=== PATIENT | male | born 1985 | race Caucasian/White ===

== ENCOUNTER 2017-10-01 11:57 | Emergency (ER) | payer SELFPAY ==
[~2017-10-01] VITALS: Ht 188 cm; Wt 77.3 kg
[~2017-10-01 11:57] MED LIST: AMBIEN10 MG PO; CELEXA20 MG PO; KLONOPIN0.5 M1 PO; LITHOBID300 MG PO; NOHOMEMEDS; PROVENTIL,200 INHALA IH; RISPERIDONE1 MG PO; THERAGRAN1 TABLET PO; VENTOLIN HFA18 GM IH; VITAMIN B-1100 MG PO; ZOLPIDEM TARTRAT5 MG PO
[2017-10-01] MEDS ORDERED: FLEXERIL10 MG PO (13:19)
[2017-10-01] MEDS ORDERED: ULTRAM50 MG PO (13:19)
[2017-10-01 13:46] VITALS: BP 135/85
== END 2017-10-01 13:46 | disposition home or self-care (01) ==
LOC: EME 11:57
DX: S29.011A Strain of muscle and tendon of front wall of thorax, initial encounter (principal); X50.9XXA Other and unspecified overexertion or strenuous movements or postures, initial encounter; Y93.89 Activity, other specified; J45.909 Unspecified asthma, uncomplicated; F17.200 Nicotine dependence, unspecified, uncomplicated
CPT/HCPCS: 71046; 93005; 99281; 99284

== ENCOUNTER 2017-11-29 05:09 | Inpatient (IN) | payer OTHER ==
[~2017-11-29] VITALS: Ht 188 cm; Wt 85.0 kg
[~2017-11-29 05:09] MED LIST changes: +FLEXERIL10 MG PO; +ULTRAM50 MG PO
[2017-11-29 05:42] LABS: AMPHETAMINE NEGATIVE (500 ng/mL); BARBITURATES NEGATIVE (200 ng/mL); BENZODIAZEPINES NEGATIVE (150 ng/mL); COCAINE PRESUMPTIVE POSITIVE (150 ng/mL); METHADONE NEGATIVE (200 ng/mL); METHAMPHETAMINE NEGATIVE (500 ng/mL); OPIATES (MORPHINE) NEGATIVE (100 ng/mL); OXYCODONE PRESUMPTIVE POSITIVE (100 ng/mL); PHENCYCLIDINE NEGATIVE (25 ng/mL); THC CANNABINOIDS NEGATIVE (50 ng/mL); TRICYCLIC ANTIDEPRESSANTS NEGATIVE (300 ng/mL)
[2017-11-29 05:43] LABS: BUPRENORPHINE NEGATIVE (10 ng/mL); PROPOXYPHENE NEGATIVE (300 ng/mL)
[2017-11-29 06:06] LABS: HEMATOCRIT 42.2 % (38.0-50.0); HEMOGLOBIN 14.1 G/DL (12.5-16.6); MCH 30.2 PG (29.0-34.0); MCHC 33.4 G/DL (30.0-36.0); MCV 90.4 FL (86-99); PLATELET COUNT 274 K/uL (156-360); RBC DIS.WIDTH-CV 14.7 % (11.8-14.6); RBC DIS.WIDTH-SD 48.8 % (39-53); RED BLOOD COUNT 4.67 M/uL (4.00-5.50); WHITE BLOOD COUNT 14.1 K/uL (4.1-10.2)
[2017-11-29 06:17] LABS: CHLORIDE 100 mEq/L (99-109); POTASSIUM 4.4 mEq/L (3.7-5.4); SODIUM 145 mEq/L (136-147)
[2017-11-29 06:19] LABS: GLUCOSE 92 mg/dL (70-99)
[2017-11-29 06:22] LABS: SERUM ETHYL ALCOHOL < 10 mg/dL
[2017-11-29 06:23] LABS: GFR ESTIMATE (CALCULATED) > 59 mL/min/ (58.99-99999)
[2017-11-29 06:24] LABS: UREA NITROGEN (BUN) 11 mg/dL (9-23)
[2017-11-29 09:58] VITALS: BP 138/71
[2017-11-29 09:59] VITALS: BP 138/71
[2017-11-29 16:07] VITALS: BP 118/59
[2017-11-30 08:00] VITALS: BP 159/70
[2017-11-30 10:20] VITALS: BP 159/70
[2017-11-30 16:06] VITALS: BP 125/79
[2017-12-01 08:21] VITALS: BP 126/79
[2017-12-01 17:04] VITALS: BP 137/81
[2017-12-02 09:18] VITALS: BP 142/73
== END 2017-12-02 12:30 | disposition home or self-care (01) | DRG 897 ==
LOC: EME 05:09 → 1WEST 07:19 → EDOF 07:19 → ENRESERV 09:52 → 1WEST 09:52
DX: F11.23 Opioid dependence with withdrawal (principal); R45.851 Suicidal ideations; F10.10 Alcohol abuse, uncomplicated; F14.10 Cocaine abuse, uncomplicated; F60.2 Antisocial personality disorder; J45.909 Unspecified asthma, uncomplicated; F17.200 Nicotine dependence, unspecified, uncomplicated; Z91.5 Personal history of self-harm
CPT/HCPCS: 80048; 84999; 85027; 90839; 97150 GO; 97165 GO; 99281; 99285; G0480; J0572; J0574; Q0177

== ENCOUNTER 2018-02-27 20:46 | Inpatient (IN) | payer OTHER ==
[~2018-02-27] VITALS: Ht 188 cm; Wt 77.0 kg
[2018-02-27 21:37] LABS: AMPHETAMINE PRESUMPTIVE POSITIVE (500 ng/mL); BARBITURATES NEGATIVE (200 ng/mL); BENZODIAZEPINES NEGATIVE (150 ng/mL); BUPRENORPHINE NEGATIVE (10 ng/mL); COCAINE PRESUMPTIVE POSITIVE (150 ng/mL); METHADONE NEGATIVE (200 ng/mL); METHAMPHETAMINE PRESUMPTIVE POSITIVE (500 ng/mL); OPIATES (MORPHINE) NEGATIVE (100 ng/mL); OXYCODONE NEGATIVE (100 ng/mL); PHENCYCLIDINE NEGATIVE (25 ng/mL); PROPOXYPHENE NEGATIVE (300 ng/mL); THC CANNABINOIDS NEGATIVE (50 ng/mL); TRICYCLIC ANTIDEPRESSANTS NEGATIVE (300 ng/mL)
[2018-02-27 21:55] LABS: HEMATOCRIT 45.2 % (38.0-50.0); HEMOGLOBIN 15.8 G/DL (12.5-16.6); MCH 30.1 PG (29.0-34.0); MCV 86.1 FL (86-99); PLATELET COUNT 245 K/uL (156-360); RBC DIS.WIDTH-CV 12.5 % (11.8-14.6); RBC DIS.WIDTH-SD 39.6 % (39-53); RED BLOOD COUNT 5.25 M/uL (4.00-5.50); WHITE BLOOD COUNT 11.1 K/uL (4.1-10.2)
[2018-02-27 22:03] LABS: CHLORIDE 110 mEq/L (99-109); POTASSIUM 4.4 mEq/L (3.7-5.4); SODIUM 147 mEq/L (136-147)
[2018-02-27 22:05] LABS: GLUCOSE 69 mg/dL (70-99)
[2018-02-27 22:08] LABS: SERUM ETHYL ALCOHOL 28 mg/dL
[2018-02-27 22:09] LABS: CREATININE 1.3 mg/dL (0.6-1.3); GFR ESTIMATE (CALCULATED) > 59 mL/min/ (58.99-99999)
[2018-02-27 22:11] LABS: UREA NITROGEN (BUN) 10 mg/dL (9-23)
[2018-02-27 22:12] LABS: ACETAMINOPHEN (TYLENOL) < 10 mcg/mL (10-30); SALICYLATE < 5.0 MG/DL (15-30)
[2018-02-28 00:27] LABS: ALBUMIN 4.2 g/dL (3.2-4.8)
[2018-02-28 00:30] LABS: TOTAL PROTEIN 7.4 g/dL (6.4-8.3)
[2018-02-28 00:31] LABS: TOTAL BILIRUBIN 0.3 mg/dL (0.0-1.0)
[2018-02-28 00:32] LABS: ALKALINE PHOSPHATASE 92 IU/L (3-129)
[2018-02-28 00:35] LABS: AST (GOT) 28 IU/L (2-34); DIRECT BILIRUBIN 0.1 mg/dL (0.0-0.3)
[2018-02-28 00:36] LABS: ALT (GPT) 44 IU/L (3-49)
[2018-02-28 07:49] VITALS: BP 133/79
[2018-02-28] MEDS ORDERED: VYVANSE60 MG PO (07:51)
[2018-02-28] MEDS ORDERED: TOPAMAX25 MG PO (07:53)
[2018-02-28] MEDS ORDERED: ABILIFY10 MG PO (07:55)
[2018-02-28 16:14] VITALS: BP 138/95
[2018-03-01 07:55] VITALS: BP 114/60
[2018-03-01] MEDS ORDERED: ARIPIPRAZOLE5 MG PO (13:21)
== END 2018-03-01 14:15 | disposition home or self-care (01) | DRG 897 ==
LOC: EME 20:46 → 1WEST 02-28 04:42 → ENRESERV 02-28 04:42 → EDOF 02-28 04:42 → 1WEST 02-28 05:10
DX: F11.24 Opioid dependence with opioid-induced mood disorder (principal); R45.851 Suicidal ideations; F11.23 Opioid dependence with withdrawal; Z91.14 Patient's other noncompliance with medication regimen; F14.10 Cocaine abuse, uncomplicated; F15.10 Other stimulant abuse, uncomplicated; F32.9 Major depressive disorder, single episode, unspecified; F41.9 Anxiety disorder, unspecified; F42.9 Obsessive-compulsive disorder, unspecified; F60.2 Antisocial personality disorder; Z59.0 Homelessness; I10 Essential (primary) hypertension; G89.29 Other chronic pain; G43.909 Migraine, unspecified, not intractable, without status migrainosus; M54.9 Dorsalgia, unspecified; J45.909 Unspecified asthma, uncomplicated; F17.210 Nicotine dependence, cigarettes, uncomplicated
CPT/HCPCS: 80048; 80076; 84999; 85027; 90839; 93005; 99281; 99285; G0480; J0574; Q0169